=== PATIENT | female | born 1960 | race Caucasian/White ===

== ENCOUNTER 2022-10-25 13:45 | Emergency (ER) | payer OTHER ==
[2022-10-25 14:13] VITALS: BP 114/58; PULSE 77; RESP 19; TEMP 98.4; BMI 21.2
== END 2022-10-25 16:42 | disposition home or self-care (01) ==
LOC: JERFT 13:45
DX: S60.221A Contusion of right hand, initial encounter (principal); W22.8XXA Striking against or struck by other objects, initial encounter
CPT/HCPCS: 73130-TC-RT-FY; 99283-25